=== PATIENT | male | born 1950 | race Caucasian/White ===

== ENCOUNTER → 2017-08-31 | Outpatient (CLI) | payer MEDICARE | END | disposition home or self-care (01) | LOC: PCVCCLINIC 11:15 | PROVIDERS: ATTEND Internal Medicine | DX: I45.10 Unspecified right bundle-branch block (principal); R94.31 Abnormal electrocardiogram [ECG] [EKG]; R00.2 Palpitations; R00.0 Tachycardia, unspecified; I71.2 Thoracic aortic aneurysm, without rupture; R93.1 Abnormal findings on diagnostic imaging of heart and coronary circulation; E78.5 Hyperlipidemia, unspecified; Q21.0 Ventricular septal defect; Z79.82 Long term (current) use of aspirin | CPT/HCPCS: 93005; G0463 ==

== ENCOUNTER → 2018-08-31 | Outpatient (CLI) | payer MEDICARE ==
--- NOTE | 2018-08-31 12:13 | PCVCIMAG ---
APPROVED REPORT Study performed: 08/31/2018 09:52:45 EXAM: Comprehensive 2D, Doppler, and color-flow Echocardiogram Patient Location: Echo lab Room #: 2Status: routine BSA: 2.04 HR: 73 bpmBP: 122/78 mmHg Rhythm: RBBB Other Information Study Quality: Good Risk Factors: Cardiac Risk Factors: Hyperlipidemia Indications Palpitations Tachycardia VSD Hx Dilated asc Ao,VSD 2D Dimensions IVSd: 8.83 (7-11mm)LVOT Diam: 22.47 (18-24mm) LVDd: 39.68 mm PWd: 8.78 (7-11mm)Ascending Ao: 37.43 (22-36mm) LVDs: 27.79 (25-40mm) Left Atrium: 30.35 (27-40mm) Aortic Root: 33.40 mm LV Single Plane 4CH: 58.46 % LV Single Plane 2CH: 59.10 % Biplane EF: 58.4 % Volumes Left Atrial Volume (Systole) Single Plane 4CH: 24.49 mLSingle Plane 2CH: 36.55 mL Biplane LA Volume: 32.00 mLLA ESV Index: 16.00 mL/m2 Aortic Valve AoV Peak Cong.: 1.07 m/s AO Peak Gr.: 4.55 mmHgLVOT Max P.78 mmHg LVOT Max V: 0.83 m/s CAM Vmax: 3.10 cm2 Mitral Valve E/A Ratio: 1.1 MV Decel. Time: 170.54 ms MV E Max Cong.: 0.55 m/s MV A Cong.: 0.52 m/s IVRT: 72.66 ms TDI E/Lateral E': 6.88E/Medial E': 7.86 Medial E' Cong.: 0.07 m/s Lateral E' Cong.: 0.08 m/s Pulmonary Valve PV Peak Cong.: 0.66 m/sPV Peak Gr.: 1.76 mmHg Pulmonary Vein P Vein S: 0.44 m/sP Vein A: 0.30 m/s P Vein D: 0.32 m/sP Vein A Dur.: 69.2 msec P Vein S/D Ratio: 1.38 Tricuspid Valve TR Peak Cong.: 2.08 m/s TR Peak Gr.: 17.27 mmHg TV Vmax: 0.69 m/sPA Pressure: 24.00 mmHg Left Ventricle The left ventricle is normal size. There is normal LV segmental wall motion. There is normal left ventricular wall thickness. A small membraneous ventricular septal defect Left ventricular systolic function is normal. The left ventricular ejection fraction is within the normal range. LVEF is 55-60%. The left ventricular diastolic function is normal. Right Ventricle The right ventricle is normal size. The right ventricular systolic function is normal. Atria The left atrium size is normal. The right atrium size is normal. Aortic Valve Aortic valve is trileaflet, mildly sclerotic No aortic regurgitation is present. There is no aortic valvular stenosis. Mitral Valve The mitral valve is normal in structure. There is no mitral valve regurgitation noted. No evidence of mitral valve stenosis. Tricuspid Valve The tricuspid valve is normal in structure. There is no tricuspid valve regurgitation noted. Pulmonic Valve The pulmonary valve is normal in structure. There is no pulmonic valvular regurgitation. Great Vessels The aortic root is normal in size. Aortic arch is normal in caliber. Ascending aorta is normal is mildly dilated (3.8cm) IVC is normal in size and collapses >50% with inspiration. Pericardium There is no pericardial effusion. There is no pleural effusion. <Conclusion> Left ventricular systolic function is normal. There is normal LV segmental wall motion. LVEF is 55-60%. A small membraneous ventricular septal defect Aortic valve is trileaflet, mildly sclerotic. No aortic regurgitation, no stenosis The mitral valve is normal in structure. No mitral valve regurgitation. Aortic arch is normal in caliber. Ascending aorta is normal is mildly dilated (3.8cm) There is no pericardial effusion.
== END | disposition home or self-care (01) ==
LOC: PCVCIMAG 09:54
PROVIDERS: ATTEND Internal Medicine
DX: I71.2 Thoracic aortic aneurysm, without rupture (principal); I45.10 Unspecified right bundle-branch block; Q21.0 Ventricular septal defect; R00.0 Tachycardia, unspecified; R00.2 Palpitations; R93.1 Abnormal findings on diagnostic imaging of heart and coronary circulation; E78.5 Hyperlipidemia, unspecified; Z79.82 Long term (current) use of aspirin; Z79.899 Other long term (current) drug therapy
CPT/HCPCS: 93005; 93306; G0463

== ENCOUNTER → 2019-08-30 | Outpatient (CLI) | payer MEDICARE ==
--- NOTE | 2019-08-30 12:47 | PCVCIMAG ---
APPROVED REPORT Study performed: 08/30/2019 10:25:31 EXAM: Comprehensive 2D, Doppler, and color-flow Echocardiogram Patient Location: Echo lab Status: routine BSA: 1.82 HR: 73 bpmBP: 110/80 mmHg Rhythm: NSR Other Information Study Quality: Good Indications Palpitations Thoracic Aortic Aneurysm, Small Membranous VSD 2D Dimensions IVSd: 12.41 (7-11mm)LVOT Diam: 19.66 (18-24mm) LVDd: 36.86 mm PWd: 7.43 (7-11mm)Ascending Ao: 38.84 (22-36mm) LVDs: 26.49 (25-40mm) Left Atrium: 25.23 (27-40mm) Aortic Root: 31.46 mm Volumes Left Atrial Volume (Systole) Single Plane 4CH: 25.88 mLSingle Plane 2CH: 35.80 mL LA ESV Index: 19.00 mL/m2 Aortic Valve AoV Peak Cong.: 1.19 m/s AO Peak Gr.: 5.63 mmHgLVOT Max P.70 mmHg LVOT Max V: 0.96 m/s CAM Vmax: 2.46 cm2 Mitral Valve E/A Ratio: 1.0 MV Decel. Time: 150.74 ms MV E Max Cong.: 0.64 m/s MV A Cong.: 0.62 m/s TDI E/Lateral E': 6.40E/Medial E': 9.14 Medial E' Cong.: 0.07 m/s Lateral E' Cong.: 0.10 m/s Pulmonary Valve PV Peak Gr.: 1.38 mmHg Pulmonary Vein P Vein S: 0.44 m/sP Vein A: 0.57 m/s P Vein D: 0.22 m/sP Vein A Dur.: 83.0 msec P Vein S/D Ratio: 2.00 Tricuspid Valve TR Peak Cong.: 2.02 m/s TR Peak Gr.: 16.36 mmHg Left Ventricle The left ventricle is normal size. There is normal LV segmental wall motion. Small membranous VSD. Left ventricular systolic function is normal. The left ventricular ejection fraction is within the normal range. LVEF is 55-60%. Mild diastolic dysfunction is present (impaired relaxation pattern). Right Ventricle The right ventricle is normal size. The right ventricular systolic function is normal. Atria The left atrium size is normal. The right atrium size is normal. Aortic Valve The aortic valve is normal in structure. No aortic regurgitation is present. There is no aortic valvular stenosis. Mitral Valve The mitral valve is normal in structure. There is no mitral valve regurgitation noted. No evidence of mitral valve stenosis. Tricuspid Valve The tricuspid valve is normal in structure. Trace tricuspid regurgitation. Pulmonary artery pressure is 23 mmHg. Pulmonic Valve The pulmonary valve is normal in structure. There is no pulmonic valvular regurgitation. Great Vessels The aortic root is normal in size. The ascending aorta is mildly dilated (4.1cm). IVC is normal in size and collapses >50% with inspiration. Pericardium There is no pericardial effusion. <Conclusion> Left ventricular systolic function is normal. There is normal LV segmental wall motion. LVEF is 55-60%. Mild diastolic dysfunction Possibe very small membranous VSD The aortic valve is normal in structure. No aortic regurgitation or stenosis. The mitral valve is normal in structure. No mitral valve regurgitation Trace tricuspid regurgitation. Pulmonary artery pressure of 23 mmHg. The ascending aorta is mildly dilated (4.1cm). There is no pericardial effusion.
== END | disposition home or self-care (01) ==
LOC: PCVCIMAG 10:14
PROVIDERS: ATTEND Internal Medicine
DX: I71.2 Thoracic aortic aneurysm, without rupture (principal); R00.2 Palpitations; Q21.0 Ventricular septal defect; E78.5 Hyperlipidemia, unspecified; R93.1 Abnormal findings on diagnostic imaging of heart and coronary circulation; I45.10 Unspecified right bundle-branch block; E78.00 Pure hypercholesterolemia, unspecified; Z79.82 Long term (current) use of aspirin; Z79.899 Other long term (current) drug therapy
CPT/HCPCS: 93005; 93306; G0463